=== PATIENT | female | born 1965 | race Caucasian/White ===

== ENCOUNTER 2017-09-20 15:28 | Inpatient (IN) | payer OTHER ==
[2017-09-20] MEDS: ASPIRIN 325 MG TABLET PO (15:51)
[2017-09-20 15:52] LABS: ADD MAN DIFF? NO
[2017-09-20] MEDS: NITROGLYCERIN SUBLINGUAL 0.4 MG BOTTLE OF 25. SL ×2 (15:52→16:06)
[2017-09-20 15:53] LABS: BASO # 0.1 x10^3/uL (0.0-0.2); BASO % 1 % (0-3); EOS # 0.2 x10^3/uL (0.0-0.7); EOS % 1 % (0-3); HEMATOCRIT 41.6 % (36.0-47.0); HEMOGLOBIN 14.1 g/dL (12.0-15.5); LYMPH # 4.1 x10^3/uL (1.0-4.8); LYMPH % 36 % (24-48); MEAN CORPUSCULAR HEMOGLOBIN 31 pg (25-35); MEAN CORPUSCULAR HGB CONC 34 g/dL (31-37); MEAN CORPUSCULAR VOLUME 90 fL (79-100); MONO # 0.9 x10^3/uL (0.0-1.1); MONO % 8 % (0-9); NEUT # 6.1 x10^3uL (1.8-7.7); NEUT % 54 % (31-73); PLATELET COUNT 338 x10^3/uL (140-400); RED BLOOD COUNT 4.63 x10^6/uL (3.50-5.40); RED CELL DISTRIBUTION WIDTH 15.1 % (11.5-14.5); WHITE BLOOD COUNT 11.3 x10^3/uL (4.0-11.0)
[2017-09-20 16:02] LABS: TROPONIN BY ISTAT 0.01 ng/ml (<0.08)
[2017-09-20 16:04] LABS: ANION GAP 10 (6-14); BLOOD UREA NITROGEN 18 mg/dL (7-20); BUN/CREATININE RATIO 30 (6-20); CALCIUM 9.7 mg/dL (8.5-10.1); CARBON DIOXIDE 29 mmol/L (21-32); CHLORIDE 104 mmol/L (98-107); CREATININE 0.6 mg/dL (0.6-1.0); GFR 105.8; GLUCOSE 109 mg/dL (70-99); POTASSIUM 3.5 mmol/L (3.5-5.1); SODIUM 143 mmol/L (136-145)
[2017-09-20] MEDS ORDERED: HEPARIN for IV BOLUS 10,000 UNIT/10 ML VIAL. ×2 (16:05→16:23)
[2017-09-20] MEDS ORDERED: NITROGLYCERIN PREMIX 250 ML IV (16:05)
[2017-09-20] MEDS: HEPARIN for IV BOLUS 10,000 UNIT/10 ML VIAL. IV (16:08)
[2017-09-20 16:10] LABS: ALBUMIN 4.1 g/dL (3.4-5.0); ALBUMIN/GLOBULIN RATIO 1.1 (1.0-1.7); ALK PHOS 108 U/L (46-116); ALT (SGPT) 23 U/L (14-59); AST (SGOT) 27 U/L (15-37); TOTAL BILIRUBIN 0.3 mg/dL (0.2-1.0)
[2017-09-20] MEDS: NITROGLYCERIN PREMIX 250 ML IV (16:12)
[2017-09-20 16:14] LABS: TROPONINI < 0.017 ng/mL (0.000-0.055)
[2017-09-20] MEDS ORDERED: ONDANSETRON PF 4 MG/2 ML VIAL. IV (16:15)
[2017-09-20] MEDS ORDERED: fentaNYL PF VIAL 100 MCG/2 ML VIAL IV (16:15)
[2017-09-20] MEDS ORDERED: NITROGLYCERIN SUBLINGUAL 0.4 MG BOTTLE OF 25. SL (16:15)
[2017-09-20] MEDS: LABETALOL 20 MG/4 ML DISP.SYRIN. IVP (16:17)
[2017-09-20] MEDS ORDERED: LIDOCAINE 2% 20 ML VIAL. (16:23)
[2017-09-20] MEDS ORDERED: TIROFIBAN 12.5MG -0.9% NS 250 ML IV (16:23)
[2017-09-20] MEDS ORDERED: fentaNYL PF VIAL 100 MCG/2 ML VIAL (16:23)
[2017-09-20] MEDS ORDERED: IOHEXOL 300 MG/ML 100ML VIAL. (16:23)
[2017-09-20] MEDS ORDERED: VERAPAMIL 5 MG/2 ML VIAL. (16:23)
[2017-09-20] MEDS ORDERED: MIDAZOLAM HCL/PF 2 MG/2 ML VIAL. (16:23)
[2017-09-20] MEDS ORDERED: NITROGLYCERIN 200 MCG/2 ML SYRINGE FOR CATH/VASC LAB. (16:23)
[2017-09-20] MEDS ORDERED: NITROPRUSSIDE SODIUM 50 MG/2 ML VIAL IV (17:05)
[2017-09-20] MEDS ORDERED: CONTRAST GIVEN MC (17:15)
[2017-09-20] MEDS: NITROPRUSSIDE 100MCG/ML SYRINGE. INT CORON (17:30)
[2017-09-20] MEDS: MIDAZOLAM HCL/PF 2 MG/2 ML VIAL. IV (17:42)
[2017-09-20] MEDS: fentaNYL PF VIAL 100 MCG/2 ML VIAL IV (17:43)
[2017-09-20] MEDS: LIDOCAINE 2% 20 ML VIAL. IJ (17:43)
[2017-09-20] MEDS: IOHEXOL 300 MG/ML 100ML VIAL. IART (17:44)
[2017-09-20] MEDS: NITROGLYCERIN 200 MCG/2 ML SYRINGE FOR CATH/VASC LAB. ICAR (17:44)
[2017-09-20] MEDS: NITROGLYCERIN 200 MCG/2 ML SYRINGE FOR CATH/VASC LAB. IART (17:44)
[2017-09-20] MEDS: VERAPAMIL 5 MG/2 ML VIAL. IART ×2 (17:45→17:46)
[2017-09-20] MEDS: PRASUGREL 10 MG TABLET. PO (17:47)
[2017-09-20] MEDS: TIROFIBAN 12.5MG -0.9% NS 250 ML IV (17:47)
[2017-09-20] MEDS: HEPARIN for IV BOLUS 10,000 UNIT/10 ML VIAL. IART (17:48)
[2017-09-20 20:00] LABS: TROPONINI 12.437 ng/mL (0.000-0.055)
[2017-09-20] MEDS: ACETAMINOPHEN 325 MG TABLET. PO (21:06)
[2017-09-20 23:00] LABS: TROPONINI 20.873 ng/mL (0.000-0.055)
[2017-09-21] MEDS: ASPIRIN ENTERIC COATED 81 MG TABLET.DR. PO (08:32)
[2017-09-21] MEDS: PRASUGREL 10 MG TABLET. PO (08:32)
[2017-09-21] MEDS: LISINOPRIL 5 MG TABLET. PO ×2 (08:33→09:45)
[2017-09-21 08:58] LABS: TROPONINI 6.746 ng/mL (0.000-0.055)
[2017-09-21 09:01] LABS: ANION GAP 8 (6-14); BLOOD UREA NITROGEN 11 mg/dL (7-20); CALCIUM 9.1 mg/dL (8.5-10.1); CARBON DIOXIDE 29 mmol/L (21-32); CHLORIDE 107 mmol/L (98-107); CREATININE 0.5 mg/dL (0.6-1.0); GFR 130.6; GLUCOSE 107 mg/dL (70-99); POTASSIUM 3.7 mmol/L (3.5-5.1); SODIUM 144 mmol/L (136-145)
[2017-09-21 09:34] LABS: CHOLESTEROL 153 mg/dL (0-200); HDLC 54 mg/dL (40-60); LDLC 86 mg/dL (0-100); NON-HDL CHOLESTEROL 99 mg/dL (0-129); TRIGLYCERIDES 63 mg/dL (0-150); VLDLC 13 mg/dL (0-40)
[2017-09-21 09:34] LABS: MAGNESIUM 1.8 mg/dL (1.8-2.4)
[2017-09-21 09:37] LABS: CHOLESTEROL/HDL RATIO 2.8
[2017-09-21 09:43] LABS: THYROID STIM HORMONE (TSH) 1.825 uIU/mL (0.358-3.74)
[2017-09-21] MEDS: CARVEDILOL 6.25 MG TABLET. PO ×2 (09:45→18:04)
[2017-09-21] MEDS: ACETAMINOPHEN 325 MG TABLET. PO (15:56)
[2017-09-21 20:12] LABS: MRSA BY PCR Negative (Negative)
[2017-09-21] MEDS: ATORVASTATIN CALCIUM 40 MG TABLET. PO (21:00)
[2017-09-22 05:16] LABS: ADD MAN DIFF? NO
[2017-09-22 05:29] LABS: BASO % 1 % (0-3); EOS # 0.2 x10^3/uL (0.0-0.7); EOS % 3 % (0-3); HEMATOCRIT 37.7 % (36.0-47.0); HEMOGLOBIN 12.8 g/dL (12.0-15.5); LYMPH # 2.7 x10^3/uL (1.0-4.8); LYMPH % 37 % (24-48); MEAN CORPUSCULAR HEMOGLOBIN 30 pg (25-35); MEAN CORPUSCULAR HGB CONC 34 g/dL (31-37); MEAN CORPUSCULAR VOLUME 89 fL (79-100); MONO # 0.7 x10^3/uL (0.0-1.1); MONO % 10 % (0-9); NEUT # 3.5 x10^3uL (1.8-7.7); NEUT % 49 % (31-73); PLATELET COUNT 267 x10^3/uL (140-400); RED BLOOD COUNT 4.22 x10^6/uL (3.50-5.40); RED CELL DISTRIBUTION WIDTH 15.3 % (11.5-14.5); WHITE BLOOD COUNT 7.2 x10^3/uL (4.0-11.0)
[2017-09-22 05:45] LABS: ANION GAP 10 (6-14); BLOOD UREA NITROGEN 13 mg/dL (7-20); CARBON DIOXIDE 26 mmol/L (21-32); CHLORIDE 108 mmol/L (98-107); CREATININE 0.5 mg/dL (0.6-1.0); GFR 130.6; GLUCOSE 91 mg/dL (70-99); POTASSIUM 3.8 mmol/L (3.5-5.1); SODIUM 144 mmol/L (136-145)
[2017-09-22] MEDS: ACETAMINOPHEN 325 MG TABLET. PO ×3 (05:57→22:24)
[2017-09-22] MEDS: ONDANSETRON PF 4 MG/2 ML VIAL. IV ×2 (07:45→15:55)
[2017-09-22] MEDS: PRASUGREL 10 MG TABLET. PO ×2 (07:46→12:44)
[2017-09-22] MEDS: LISINOPRIL 5 MG TABLET. PO (07:46)
[2017-09-22] MEDS: ASPIRIN ENTERIC COATED 81 MG TABLET.DR. PO (07:47)
[2017-09-22] MEDS: CARVEDILOL 6.25 MG TABLET. PO ×2 (07:48→17:08)
[2017-09-22] MEDS: MORPHINE SULFATE 4 MG/ML DISP.SYRIN. IV ×2 (08:12→15:12)
[2017-09-22] MEDS: NITROGLYCERIN SUBLINGUAL 0.4 MG BOTTLE OF 25. SL ×2 (09:49→09:55)
[2017-09-22 10:11] LABS: TROPONINI 2.912 ng/mL (0.000-0.055)
[2017-09-22 10:13] LABS: CKMB INDEX 3.6 % (0-4); CKMB MASS 7.7 ng/mL (0.0-3.6); CREATINE KINASE 215 U/L (26-192)
[2017-09-22] MEDS: NITROGLYCERIN PREMIX 250 ML IV (10:46)
[2017-09-22 11:18] LABS: TROPONINI 2.611 ng/mL (0.000-0.055)
[2017-09-22 11:26] LABS: CKMB INDEX 3.1 % (0-4); CKMB MASS 5.9 ng/mL (0.0-3.6); CREATINE KINASE 191 U/L (26-192)
[2017-09-22] MEDS ORDERED: LIDOCAINE 2% 20 ML VIAL. (11:32)
[2017-09-22] MEDS ORDERED: IODIXANOL 320 MG/ML 100 ML VIAL. (11:32)
[2017-09-22] MEDS ORDERED: MIDAZOLAM HCL/PF 5 MG/5 ML VIAL. (11:41)
[2017-09-22] MEDS ORDERED: fentaNYL PF VIAL 100 MCG/2 ML VIAL (11:41)
[2017-09-22] MEDS ORDERED: HEPARIN for IV BOLUS 10,000 UNIT/10 ML VIAL. (11:41)
[2017-09-22] MEDS ORDERED: NITROGLYCERIN 200 MCG/2 ML SYRINGE FOR CATH/VASC LAB. (11:42)
[2017-09-22] MEDS ORDERED: VERAPAMIL 5 MG/2 ML VIAL. (11:42)
[2017-09-22] MEDS ORDERED: HEPARIN for IV BOLUS 10,000 UNIT/10 ML VIAL. IV (12:30)
[2017-09-22] MEDS ORDERED: PRASUGREL 10 MG TABLET. (12:35)
[2017-09-22] MEDS: LIDOCAINE 2% 20 ML VIAL. IJ (12:38)
[2017-09-22] MEDS: NITROGLYCERIN 200 MCG/2 ML SYRINGE FOR CATH/VASC LAB. IART (12:39)
[2017-09-22] MEDS: NITROGLYCERIN 200 MCG/2 ML SYRINGE FOR CATH/VASC LAB. ICAR (12:39)
[2017-09-22] MEDS: VERAPAMIL 5 MG/2 ML VIAL. IART ×2 (12:40→12:41)
[2017-09-22] MEDS: IODIXANOL 320 MG/ML 100 ML VIAL. IART (12:40)
[2017-09-22] MEDS: MIDAZOLAM HCL/PF 5 MG/5 ML VIAL. IV (12:41)
[2017-09-22] MEDS: fentaNYL PF VIAL 100 MCG/2 ML VIAL IV (12:42)
[2017-09-22] MEDS: HEPARIN for IV BOLUS 10,000 UNIT/10 ML VIAL. IART (12:43)
[2017-09-22] MEDS: HEPARIN for IV BOLUS 10,000 UNIT/10 ML VIAL. IV (12:43)
[2017-09-22 15:32] LABS: HEMOGLOBIN A1C 5.3 % (4.8-5.6)
[2017-09-22] MEDS: HEPARIN 25,000UTS/500ML PREMIX 500 ML IV (15:32)
[2017-09-22] MEDS: ANTI-COAG MONITOR BY PHARMACY. MC (16:02)
[2017-09-22] MEDS: METOCLOPRAMIDE HCL 10 MG/2 ML VIAL. IV (18:40)
[2017-09-22] MEDS: ATORVASTATIN CALCIUM 40 MG TABLET. PO (20:48)
[2017-09-22 21:05] LABS: UNFRACTIONATED HEPARIN TESTING 0.36 IU/mL (0.30-0.70)
[2017-09-23 04:26] LABS: ADD MAN DIFF? NO
[2017-09-23 04:45] LABS: BASO % 0 % (0-3); EOS # 0.2 x10^3/uL (0.0-0.7); EOS % 2 % (0-3); HEMOGLOBIN 12.6 g/dL (12.0-15.5); LYMPH # 2.9 x10^3/uL (1.0-4.8); LYMPH % 27 % (24-48); MEAN CORPUSCULAR HEMOGLOBIN 31 pg (25-35); MEAN CORPUSCULAR HGB CONC 34 g/dL (31-37); MEAN CORPUSCULAR VOLUME 90 fL (79-100); MONO # 0.9 x10^3/uL (0.0-1.1); MONO % 8 % (0-9); NEUT # 6.7 x10^3uL (1.8-7.7); NEUT % 62 % (31-73); PLATELET COUNT 273 x10^3/uL (140-400); RED BLOOD COUNT 4.11 x10^6/uL (3.50-5.40); RED CELL DISTRIBUTION WIDTH 15.3 % (11.5-14.5); WHITE BLOOD COUNT 10.8 x10^3/uL (4.0-11.0)
[2017-09-23 04:52] LABS: ANION GAP 8 (6-14); BLOOD UREA NITROGEN 9 mg/dL (7-20); CALCIUM 9.4 mg/dL (8.5-10.1); CARBON DIOXIDE 27 mmol/L (21-32); CHLORIDE 105 mmol/L (98-107); CREATININE 0.5 mg/dL (0.6-1.0); GFR 130.6; GLUCOSE 102 mg/dL (70-99); POTASSIUM 3.9 mmol/L (3.5-5.1); SODIUM 140 mmol/L (136-145)
[2017-09-23 06:20] LABS: UNFRACTIONATED HEPARIN TESTING 0.26 IU/mL (0.30-0.70)
[2017-09-23] MEDS: ACETAMINOPHEN 325 MG TABLET. PO ×2 (08:52→15:28)
[2017-09-23] MEDS: CARVEDILOL 6.25 MG TABLET. PO ×2 (08:53→16:49)
[2017-09-23] MEDS: PRASUGREL 10 MG TABLET. PO (08:53)
[2017-09-23] MEDS: ASPIRIN ENTERIC COATED 81 MG TABLET.DR. PO (08:53)
[2017-09-23] MEDS: LISINOPRIL 5 MG TABLET. PO (08:54)
[2017-09-23] MEDS: LISINOPRIL 10 MG TABLET PO (12:18)
[2017-09-23] MEDS: ISOSORBIDE MONONITRATE ER 30 MG TAB.ER.24H PO (15:29)
[2017-09-23] MEDS: tiZANidine 4 MG TABLET. PO ×2 (16:49→23:11)
[2017-09-23] MEDS: ATORVASTATIN CALCIUM 40 MG TABLET. PO (20:22)
[2017-09-23] MEDS: AMITRIPTYLINE HCL 10 MG TABLET. PO (20:22)
[2017-09-24] MEDS: HYDROcodone/APAP 5/325MG 1 TAB TABLET PO ×2 (03:55→10:26)
[2017-09-24 04:27] LABS: ADD MAN DIFF? NO
[2017-09-24 05:18] LABS: BASO % 0 % (0-3); EOS # 0.3 x10^3/uL (0.0-0.7); EOS % 3 % (0-3); HEMATOCRIT 37.3 % (36.0-47.0); HEMOGLOBIN 12.7 g/dL (12.0-15.5); LYMPH # 2.2 x10^3/uL (1.0-4.8); LYMPH % 26 % (24-48); MEAN CORPUSCULAR HEMOGLOBIN 30 pg (25-35); MEAN CORPUSCULAR HGB CONC 34 g/dL (31-37); MEAN CORPUSCULAR VOLUME 89 fL (79-100); MONO # 0.8 x10^3/uL (0.0-1.1); MONO % 10 % (0-9); NEUT # 5.2 x10^3uL (1.8-7.7); NEUT % 61 % (31-73); PLATELET COUNT 266 x10^3/uL (140-400); RED BLOOD COUNT 4.17 x10^6/uL (3.50-5.40); RED CELL DISTRIBUTION WIDTH 15.2 % (11.5-14.5); WHITE BLOOD COUNT 8.4 x10^3/uL (4.0-11.0)
[2017-09-24 05:28] LABS: ANION GAP 9 (6-14); BLOOD UREA NITROGEN 11 mg/dL (7-20); CARBON DIOXIDE 28 mmol/L (21-32); CHLORIDE 106 mmol/L (98-107); CREATININE 0.5 mg/dL (0.6-1.0); GFR 130.6; GLUCOSE 94 mg/dL (70-99); POTASSIUM 4.1 mmol/L (3.5-5.1); SODIUM 143 mmol/L (136-145)
[2017-09-24] MEDS: PRASUGREL 10 MG TABLET. PO (08:46)
[2017-09-24] MEDS: ASPIRIN ENTERIC COATED 81 MG TABLET.DR. PO (08:46)
[2017-09-24] MEDS: ISOSORBIDE MONONITRATE ER 30 MG TAB.ER.24H PO (08:46)
[2017-09-24] MEDS: CARVEDILOL 6.25 MG TABLET. PO (08:52)
[2017-09-24] MEDS: LISINOPRIL 20 MG TABLET PO (09:00)
== END 2017-09-24 15:41 | disposition home or self-care (01) | DRG 246 ==
LOC: ER 15:28 → 1 WEST ICU 15:51 → 2 SOUTH 09-21 15:47
PROC: B2111ZZ Fluoroscopy of Multiple Coronary Arteries using Low Osmolar Contrast (ICD-10-PCS; 2017-09-20)
PROC: B2151ZZ Fluoroscopy of Left Heart using Low Osmolar Contrast (ICD-10-PCS; 2017-09-20)
PROC: 4A023N7 Measurement of Cardiac Sampling and Pressure, Left Heart, Percutaneous Approach (ICD-10-PCS; 2017-09-20)
PROC: 027035Z Dilation of Coronary Artery, One Artery with Two Drug-eluting Intraluminal Devices, Percutaneous Approach (ICD-10-PCS; principal; 2017-09-22)
DX: I21.09 ST elevation (STEMI) myocardial infarction involving other coronary artery of anterior wall (principal); I25.42 Coronary artery dissection; I42.9 Cardiomyopathy, unspecified; F17.200 Nicotine dependence, unspecified, uncomplicated; F42.9 Obsessive-compulsive disorder, unspecified; F90.9 Attention-deficit hyperactivity disorder, unspecified type; I10 Essential (primary) hypertension; Z82.49 Family history of ischemic heart disease and other diseases of the circulatory system; Z87.820 Personal history of traumatic brain injury; Z98.61 Coronary angioplasty status; G43.909 Migraine, unspecified, not intractable, without status migrainosus; Z41.1 Encounter for cosmetic surgery; Z88.5 Allergy status to narcotic agent; Z88.0 Allergy status to penicillin
CPT/HCPCS: 36415; 70450; 71045; 80048; 80053; 80061; 82553; 83036; 83735; 84443; 84484; 85025; 85520; 87641; 92928; 93005; 93306; 93454; 93458; 96365; 96375; 99152; 99153; 99291; 99291-25; 99406; C1713; C1725; C1769; C1874; C1887; C1892; J1644; J2250; J2270; J2405; J2765; J3010; J3490; Q9967

== ENCOUNTER → 2017-11-22 | Outpatient (CLI) | payer OTHER ==
[2017-11-22 12:17] LABS: ANION GAP 6 (6-14); BLOOD UREA NITROGEN 13 mg/dL (7-20); CALCIUM 9.4 mg/dL (8.5-10.1); CARBON DIOXIDE 33 mmol/L (21-32); CHLORIDE 103 mmol/L (98-107); CREATININE 0.6 mg/dL (0.6-1.0); GFR 105.8; GLUCOSE 105 mg/dL (70-99); POTASSIUM 4.4 mmol/L (3.5-5.1); SODIUM 142 mmol/L (136-145)
[2017-11-22 12:30] LABS: NT-PRO BNP 120 pg/mL (0-124)
== END | disposition home or self-care (01) ==
LOC: LAB 11:31
DX: I25.5 Ischemic cardiomyopathy (principal)
CPT/HCPCS: 36415; 80048; 83880

== ENCOUNTER → 2017-12-18 | Outpatient (CLI) | payer OTHER | END | disposition home or self-care (01) | LOC: ECHO 14:00 | DX: I25.5 Ischemic cardiomyopathy (principal); I10 Essential (primary) hypertension; G43.909 Migraine, unspecified, not intractable, without status migrainosus; I25.10 Atherosclerotic heart disease of native coronary artery without angina pectoris; I25.2 Old myocardial infarction; Z87.891 Personal history of nicotine dependence; Z95.1 Presence of aortocoronary bypass graft | CPT/HCPCS: 93306 ==

== ENCOUNTER → 2018-03-28 | Outpatient (CLI) | payer OTHER ==
[2017-09-24 11:09] VITALS: BP 100/61
[~2018-03-28] MED LIST: AMIT10TA PO; ATOR40TA59 PO; DIAZ5TAB4 PO; ISOS30TA4 PO; LISI10TA2 PO; METO-239 PO; PRAS10TA9 PO; TIZA4CAP3 PO
[2018-03-28 12:05] LABS: CALCIUM 9.1 mg/dL (8.5-10.1); CREATININE 0.7 mg/dL (0.6-1.0); GFR 88.6; POTASSIUM 4.2 mmol/L (3.5-5.1); TOTAL BILIRUBIN 0.1 mg/dL (0.2-1.0)
== END | disposition home or self-care (01) ==
LOC: LAB 11:19
PROVIDERS: ATTEND Internal Medicine Cardiovascular Disease
DX: I25.10 Atherosclerotic heart disease of native coronary artery without angina pectoris (principal); R10.10 Upper abdominal pain, unspecified
CPT/HCPCS: 36415; 80053; 83880

== ENCOUNTER → 2018-03-29 | Outpatient (CLI) | payer OTHER ==
[2017-09-24 11:09] VITALS: BP 100/61
--- NOTE | 2018-03-29 15:34 | CARD ---
MR#: [id number] Date of Study: 03/29/2018 Ordering Physician: BEVERLY GUEVARA, Referring Physician: BEVERLY GUEVARA, Tech: Beth Oconnor [facility] APPROVED REPORT EXAM: Two-dimensional and M-mode echocardiogram with Doppler and color Doppler. Other Information Quality : Good Rhythm : NSR INDICATION CAD 2D DIMENSIONS RVDd2.6 (2.9-3.5cm)Left Atrium(2D)2.7 (1.6-4.0cm) IVSd1.1 (0.7-1.1cm)Aortic Root(2D)2.7 (2.0-3.7cm) LVDd4.2 (3.9-5.9cm)LVOT Diameter2.0 (1.8-2.4cm) PWd1.0 (0.7-1.1cm)LVDs2.5 (2.5-4.0cm) FS (%) 35.0 %SV57.9 ml LVEF(%)70.0 (>50%) M-Mode DIMENSIONS Left Atrium(MM)2.79 (2.5-4.0cm)Aortic Root3.07 (2.2-3.7cm) Aortic Valve AoV Peak Simeon.124.0cm/sAoV VTI19.7cm AO Peak GR.6.1mmHgLVOT Peak Simeon.71.6cm/s AO Mean GR.4mmHgAVA (VMAX)1.77cm2 DONNA (VTI)1.80cm2 Mitral Valve MV E Pmnxedsc53.2cm/sMV E Peak Gr.3mmHg MV DECEL [id number] A Xqbvczif61.1cm/s MV E Mean Gr.2mmHgE/A Ratio0.6 Pulmonary Valve PV Peak Zvmovbgr04.2cm/s LEFT VENTRICLE The left ventricle is normal size. There is borderline concentric left ventricular hypertrophy. The l eft ventricular systolic function is normal. The Ejection Fraction is 65-70%. There is normal LV segm ental wall motion. Transmitral Doppler flow pattern is Grade I-abnormal relaxation pattern. RIGHT VENTRICLE The right ventricle is normal size. There is normal right ventricular wall thickness. The right ventr icular systolic function is normal. ATRIA The left atrium size is normal. The right atrium size is normal. The interatrial septum is intact wit h no evidence for an atrial septal defect or patent foramen ovale as noted on 2-D or Doppler imaging. AORTIC VALVE The aortic valve is trileaflet. The aortic valve is normal in structure and function. Doppler and Col or Flow revealed no significant aortic regurgitation. There is no significant aortic valvular stenosi s. MITRAL VALVE The mitral valve is normal in structure and function. There is no evidence of mitral valve prolapse. There is no mitral valve stenosis. Doppler and Color Flow revealed no mitral valve regurgitation note d. TRICUSPID VALVE The tricuspid valve is normal in structure and function. Doppler and Color Flow revealed no tricuspid valve regurgitation noted. There is no tricuspid valve prolapse or vegetation. There is no tricuspid valve stenosis. PULMONIC VALVE Pulmonic valve not well visualized. Doppler and Color Flow revealed no pulmonic valvular regurgitatio n. There is no pulmonic valvular stenosis. GREAT VESSELS The aortic root is normal in size. The ascending aorta is normal in size. PERICARDIAL EFFUSION There is no evidence of significant pericardial effusion. Critical Notification Critical Value: No <Conclusion> The left ventricular systolic function is normal. The Ejection Fraction is 65-70%. There is normal LV segmental wall motion. Transmitral Doppler flow pattern is Grade I-abnormal relaxation pattern. No significant valvular abnormalities. There is no evidence of significant pericardial effusion. Signed by : Zaid Kaufman, Electronically Approved : 03/29/2018 15:33:47
== END | disposition home or self-care (01) ==
LOC: ECHO 12:56
PROVIDERS: ATTEND Internal Medicine Cardiovascular Disease
DX: I25.10 Atherosclerotic heart disease of native coronary artery without angina pectoris (principal); I51.7 Cardiomegaly
CPT/HCPCS: 93306